=== PATIENT | male | born 1935 | race Caucasian/White ===

== ENCOUNTER 2018-07-27 10:15 | Outpatient (CLI) | payer MEDICARE ==
--- NOTE | 2018-07-27 10:28 | RAD ---
FTwo-view chest: INDICATIONS: Dyspnea. COMPARISON: 07/18/2015 Lungs appear clear. No evidence of vascular congestion or effusion. Heart size upper normal. Postop s ternotomy changes. Aortic valve prosthesis. IMPRESSION: No acute finding
== END 2018-07-27 10:16 | disposition home or self-care (01) ==
LOC: RAD 10:15
PROVIDERS: ATTEND Internal Medicine Critical Care Medicine
DX: R06.00 Dyspnea, unspecified (principal)
CPT/HCPCS: 71046

== ENCOUNTER 2021-03-07 09:00 | Outpatient (CLI) | payer MEDICARE | END 2021-03-07 09:01 | disposition home or self-care (01) | LOC: RAD 09:00 | PROVIDERS: ATTEND Internal Medicine Critical Care Medicine | DX: R06.00 Dyspnea, unspecified (principal) | CPT/HCPCS: 71046 ==

== ENCOUNTER 2022-08-05 15:48 | Observation (INO) | payer MEDICARE ==
[~2022-08-05 15:48] MED LIST: Iopamidol-370 76% 500 ML MDV (1 ML CHARGE) ONE
[2022-08-05 16:51] LABS: #Basophils 0.1 thou/uL (0.0-0.2); #Eosinphils 0.2 thou/uL (0.0-0.7); #Lymphocytes 1.8 thou/uL (1.20-3.40); #Monocytes 1.2 thou/uL (0.11-0.59); #Neutrophils 8.7 thou/uL (1.40-6.50); %Basophils 0.5 % (0.0-1.0); %Eosinophils 1.9 % (0.0-10.0); %Lymphocytes 14.7 % (21.0-51.0); %Monocytes 10.2 % (0.0-10.0); %Neutrophils 72.7 % (42.0-75.0); Hemoglobin 14.9 g/dL (14.0-18.0); Mean Corpuscular HGB CONC 31.8 g/dL (32.0-36.0); Mean Corpuscular Hemoglobin 29.8 pg (27.0-31.0); Mean Corpuscular Volume 93.9 fl (78.0-98.0); Mean Platelet Volume 7.4 fL (7.4-10.4); Platelet Count 249 10x3/uL (130-400); RBC Distribution Width 12.9 % (11.5-14.5); Red Blood Cell (RBC) Count 4.99 mill/uL (4.70-6.10)
[2022-08-05 17:13] LABS: ALT (SGPT) 13 U/L (8-55); AST (SGOT) 14 U/L (5-34); Alkaline Phosphatase 61 U/L (40-110); Anion Gap 14 mmol/L (10-20); BUN (Urea Nitrogen) 21 mg/dL (8.4-25.7); Calc. Creatinine Clearance 0 mL/min (70-130); Carbon Dioxide 22 mmol/L (23-31); Chloride 102 mmol/L (98-107); Estimated GFR 51; Globulin 3.9 g/dL (2.4-3.5); Glucose 123 mg/dL (83-110); Potassium 4.3 mmol/L (3.5-5.1); Protein, Total 7.9 g/dL (5.8-8.1); Sodium 134 mmol/L (136-145)
[2022-08-05 17:30] LABS: CKMB 0.8 ng/mL (0-6.6)
[2022-08-05] MEDS ORDERED: Aspirin Chewable 81 MG TAB ONE (17:46)
[2022-08-05] MEDS ORDERED: Guaifenesin DM 100-10/5 ML UDCUP PO PRN (18:04)
[2022-08-05] MEDS ORDERED: Calcium Carbonate 500 MG ChewTAB PO PRN (18:04)
[2022-08-05] MEDS ORDERED: Acetaminophen 325 MG TAB PO PRN (18:04)
[2022-08-05] MEDS ORDERED: Senokot S 8.6-50 MG TAB PO PRN (18:04)
[2022-08-05] MEDS ORDERED: Ondansetron PF 4 MG/2 ML Vial IVP PRN (18:04)
[2022-08-05] MEDS ORDERED: Ondansetron ODT 4 MG TAB PO PRN (18:04)
[2022-08-05 18:05] LABS: INR-International Normal Ratio 3.4; Prothrombin Time 36.1 sec (12.0-14.7)
[2022-08-05 18:06] LABS: PTT 70.4 sec (22.9-36.1)
[2022-08-05] MEDS ORDERED: Ipratropium/Albuterol 3 ML NEB ONE (18:25)
[2022-08-05] MEDS ORDERED: Timolol 0.5% Ophth Soln 5 ml Bottle EA EYE SCH (21:00)
[2022-08-05] MEDS ORDERED: Furosemide 40 MG/4 ML VIAL SLOW IVP SCH (21:15)
[2022-08-05 22:09] LABS: Troponin I 0.047 ng/mL (< 0.028)
[2022-08-05] MEDS ORDERED: Ipratropium/Albuterol 3 ML NEB NEB PRN (22:09)
[2022-08-05] MEDS ORDERED: hydrALAZINE 20 MG/ML VIAL SLOW IVP PRN (22:15)
[2022-08-05 22:17] VITALS: BMI 31.6
[2022-08-05] MEDS: Brimonidine Tartrate 0.2% Ophth Soln 5 ml Bottle EA EYE SCH (23:49)
[2022-08-05] MEDS: Timolol 0.25% Ophth Soln 5 ml Bottle EA EYE SCH (23:49)
[2022-08-06 00:49] LABS: Troponin I 0.053 ng/mL (< 0.028)
[2022-08-06 05:08] LABS: #Eosinphils 0.2 thou/uL (0.0-0.7); #Monocytes 1.3 thou/uL (0.11-0.59); #Neutrophils 7.4 thou/uL (1.40-6.50); %Basophils 0.1 % (0.0-1.0); %Eosinophils 1.6 % (0.0-10.0); %Monocytes 11.7 % (0.0-10.0); %Neutrophils 68.7 % (42.0-75.0); Hemoglobin 13.3 g/dL (14.0-18.0); Mean Corpuscular HGB CONC 30.6 g/dL (32.0-36.0); Mean Corpuscular Hemoglobin 28.6 pg (27.0-31.0); Mean Corpuscular Volume 93.4 fl (78.0-98.0); Mean Platelet Volume 7.3 fL (7.4-10.4); Platelet Count 245 10x3/uL (130-400); RBC Distribution Width 12.8 % (11.5-14.5); Red Blood Cell (RBC) Count 4.64 mill/uL (4.70-6.10); White Blood Cell (WBC) Count 10.8 10x3/uL (4.8-10.8)
[2022-08-06 05:16] LABS: INR-International Normal Ratio 3.8; Prothrombin Time 39.2 sec (12.0-14.7)
[2022-08-06 05:30] LABS: ALT (SGPT) 12 U/L (8-55); AST (SGOT) 14 U/L (5-34); Albumin 3.5 g/dL (3.4-4.8); Alkaline Phosphatase 57 U/L (40-110); Anion Gap 14 mmol/L (10-20); BUN (Urea Nitrogen) 22 mg/dL (8.4-25.7); Bilirubin, Total 0.9 mg/dL (0.2-1.2); Calc. Creatinine Clearance 46 mL/min (70-130); Calcium 9.4 mg/dL (7.8-10.44); Carbon Dioxide 24 mmol/L (23-31); Chloride 102 mmol/L (98-107); Estimated GFR 49; Globulin 3.5 g/dL (2.4-3.5); Glucose 111 mg/dL (83-110); Potassium 4.2 mmol/L (3.5-5.1); Sodium 136 mmol/L (136-145)
[2022-08-06] MEDS ORDERED: Spironolactone 25 MG TAB PO SCH (08:00)
[2022-08-06] MEDS ORDERED: Ketorolac Tromethamine 30 MG/ML VIAL IVP SCH (08:00)
[2022-08-06] MEDS ORDERED: Empagliflozin 25 MG TAB PO SCH ×2 (09:00)
[2022-08-06] MEDS ORDERED: Aspirin 81 mg Enteric Coated Tablet PO SCH (09:00)
[2022-08-06] MEDS ORDERED: Zonisamide 100 MG CAP PO SCH (09:00)
[2022-08-06] MEDS ORDERED: Clopidogrel Bisulfate 75 MG TAB PO SCH (09:00)
[2022-08-06] MEDS ORDERED: lamoTRIgine 25 MG TAB PO SCH (09:00)
[2022-08-06] MEDS: Timolol 0.25% Ophth Soln 5 ml Bottle EA EYE SCH (10:08)
[2022-08-06] MEDS: Brimonidine Tartrate 0.2% Ophth Soln 5 ml Bottle EA EYE SCH (10:09)
[2022-08-06] MEDS ORDERED: predniSONE 20 MG TAB PO SCH (12:00)
[2022-08-06 12:48] VITALS: BP 106/55; TEMP 97.3
== END 2022-08-06 16:01 | disposition home or self-care (01) ==
LOC: ERS 15:48 → SUATTDRO 15:48 → 2SW 18:04
PROVIDERS: ADMIT Internal Medicine; ATTEND Internal Medicine
DX: R07.89 Other chest pain (principal); I13.0 Hypertensive heart and chronic kidney disease with heart failure and stage 1 through stage 4 chronic kidney disease, or unspecified chronic kidney disease; N18.9 Chronic kidney disease, unspecified; I50.20 Unspecified systolic (congestive) heart failure; J44.9 Chronic obstructive pulmonary disease, unspecified; E78.5 Hyperlipidemia, unspecified; I25.10 Atherosclerotic heart disease of native coronary artery without angina pectoris; G89.29 Other chronic pain; M54.2 Cervicalgia; Z66 Do not resuscitate; Z86.718 Personal history of other venous thrombosis and embolism; Z87.891 Personal history of nicotine dependence; Z79.01 Long term (current) use of anticoagulants; Z79.82 Long term (current) use of aspirin; Z79.84 Long term (current) use of oral hypoglycemic drugs; Z79.899 Other long term (current) drug therapy; Z88.5 Allergy status to narcotic agent; Z88.8 Allergy status to other drugs, medicaments and biological substances; Z95.1 Presence of aortocoronary bypass graft; Z95.2 Presence of prosthetic heart valve; Z95.810 Presence of automatic (implantable) cardiac defibrillator
CPT/HCPCS: 71045; 71100 ×2; 71275; 80053 ×2; 82553; 83880; 84484 ×3; 85025 ×2; 85610 ×2; 85730; 93005; 93306; 94760; 96374; 96375; 99285; G0378 ×3; 36415; J1885; J1940; J7512; J7620; Q9967